=== PATIENT | female | born 1945 | race Caucasian/White ===

== ENCOUNTER → 2018-07-19 15:13 | Outpatient (CLI) | payer BC, MEDICARE, SELFPAY ==
--- NOTE | 2018-07-19 15:24 | CT_ITS ---
CT head/brain wo con HISTORY: Bilateral facial weakness with face drawn to the right ITS.REASON: LT AND RT FACIAL WEAKNESS ORDERING PHYSICIAN: Martin Cordova PATIENT AGE: 72 years COMPARISON: 07/12/2012 TECHNIQUE: Axial images obtained without contrast. Brain and bone windows reviewed. All CT scans at the facility use one or more dose reduction, viz: automated exposure control, ma/kV adjustment per patient size (including targeted exams where dose is matched to indication, i.e. head), or iterative reconstruction technique. FINDINGS: No midline shift, mass effect, intracranial hemorrhage, hydrocephalus, or extra-axial fluid collection is evident. There is generalized atrophy. There is an old lacunar infarction versus dilated perivascular space in the left basal ganglia posteriorly. There is a partially calcified subcutaneous nodule in the right parietal region. No mastoid effusion. No sinus air-fluid levels.. IMPRESSION: No acute intracranial findings.
== END ==
PROVIDERS: PCP Internal Medicine; Visit Provider Internal Medicine
DX: R29.810 Facial weakness (principal)
CPT/HCPCS: 70450

== ENCOUNTER → 2018-09-10 09:32 | Outpatient (CLI) | payer BC, MEDICARE, SELFPAY ==
--- NOTE | 2018-09-10 09:35 | MM_ITS ---
MM Dig screening mamm BI w/CAD ORDERING PHYSICIAN : Micah Santacruz MD PATIENT AGE: 72 years GENDER: Female COMPARISON: November 2016, October 2015. September, INDICATION: Routine Screening Mammogram No hormones. No new complaints. Noncontributory family history. TECHNIQUE: Standard CC and MLO images were obtained. R2 CAD reviewed. FINDINGS: Prior films are helpful as it is fourth of the moderately dense glandular tissue remaining at the anterior breast, retroareolar region is stable. No new findings here. Stable minor asymmetry again observed with no focal dominant mass nor suspicious calculation RIGHT BREAST: . No new areas of significant concern Small Relative area density at medial retroareolar region is been seen on studies from 2011 & 2012 and appear stable LEFT BREAST:No new areas of concern. Follow-up in one year recommended bilateral IMPRESSION: ...... Stable mammogram No new areas of concern. Follow-up in one year recommended bilateral BI-RADS Category: 2 Benign Finding(s) RECOMMENDED FOLLOW-UP: 1YR 1 YEAR FOLLOW-UP (A letter has been sent to the patient regarding results of the study.)
== END ==
PROVIDERS: PCP Internal Medicine; Visit Provider Nurse Practitioner Obstetrics & Gynecology
DX: Z12.31 Encounter for screening mammogram for malignant neoplasm of breast (principal)
CPT/HCPCS: 77067

== ENCOUNTER → 2018-09-17 10:53 | Outpatient (POV) | payer BC, SELFPAY | PROVIDERS: Visit Provider Otolaryngology | DX: Z00.00 Encounter for general adult medical examination without abnormal findings (principal) ==

== ENCOUNTER → 2019-01-02 09:39 | Outpatient (CLI) | payer BC, SELFPAY ==
--- NOTE | 2019-01-02 09:40 | XR_ITS ---
XR DEXA axial skeleton HISTORY: ITS.REASON: Routine Dexa Scan- Post-menopausal ORDERING PHYSICIAN: Mciah Santacruz MD PATIENT AGE: 73 years COMPARISON: None FINDINGS: The BMD measured at the Right femoral neck is 0.751 g/cm squared with a T score of -2.1. This is considered Osteopenic according to the World Health Organization criteria. Fracture risk is Moderate. Treatment is advised. There are degenerative changes of the lumbar spine IMPRESSION: Osteopenia with moderate fracture risk. Treatment is advised. Suggest follow-up exam January 2021
== END ==
PROVIDERS: PCP Internal Medicine; Visit Provider Nurse Practitioner Obstetrics & Gynecology
DX: Z78.0 Asymptomatic menopausal state (principal)
CPT/HCPCS: 77080

== ENCOUNTER → 2019-10-24 09:14 | Outpatient (CLI) | payer MEDICARE, SELFPAY ==
--- NOTE | 2019-10-24 09:23 | MM_ITS ---
PROCEDURE: MM DIG SCREENING MAMM BI W/CAD DIGITAL BREAST TOMOSYNTHESIS INCLUDED Patient Age:74Y CLINICAL INDICATION: SCREENING 74-year-old. No hormones but no new complaints noncontributory family history. 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 R2 CAD reviewed. Bilateral digital breast tomosynthesis included. FINDINGS: Residual fibroglandular elements are at the retroareolar region demonstrate similar pattern and appearance to previous studies. No new dominant or suspicious mass. No suspicious calcifications. Left breast: Stable appearance again the dense area of fibroglandular tissue towards superior retroareolar region extending towards upper-outer quadrant is stable. Tiny area of nodularity deeper breast stable.. IMPRESSION: Stable bilateral mammogram with no new areas of concern . Bilateral follow-up 1 year recommended BI-RAD Category: 2 Benign Finding(s) FOLLOW-UP: 1YR 1 Year Follow-up (A letter has been sent to the patient regarding results of the study.) Dictated by: Luis Hurst MD 10/30/2019 10:14 Electronically signed by Luis Hurst MD in [place] 10/30/2019 10:14
== END ==
PROVIDERS: PCP Internal Medicine; Visit Provider Internal Medicine
DX: Z12.31 Encounter for screening mammogram for malignant neoplasm of breast (principal)
CPT/HCPCS: 77063; 77067

== ENCOUNTER → 2020-05-17 10:35 | Outpatient (CLI) | payer MEDICARE, BC, SELFPAY ==
--- NOTE | 2020-05-17 10:43 | XR_ITS ---
PROCEDURE: XR KNEE LT 3V CLINICAL INDICATION: LT KNEE PAIN ESPECIALLY MEDIALLY COMPARISON: No exams were available for comparison FINDINGS: No fracture or dislocation. No lytic or blastic change. There is normal mineralization. There are mild osteoarthritic changes involving all 3 compartments with suspected small suprapatellar effusion. Other findings:None. IMPRESSION: Mild osteoarthritis with small knee joint effusion Dictated by: Dru De Jesus MD 05/17/2020 10:58 Dru De Jesus MD in [place] 05/17/2020 10:58
== END ==
PROVIDERS: PCP Internal Medicine; Visit Provider Internal Medicine
DX: M25.562 Pain in left knee (principal)
CPT/HCPCS: 73562

== ENCOUNTER → 2020-11-17 10:45 | Outpatient (CLI) | payer MEDICARE, BC, SELFPAY ==
--- NOTE | 2020-11-17 10:47 | MM_ITS ---
PROCEDURE: MM DIG SCREENING MAMM BI W/CAD Digital Breast Tomosynthesis Included CLINICAL INDICATION: SCREENING COMPARISON: MG [facility] DIG MAMM-SCREEN SABINO W/CAD from 11/15/2016 MG [facility] MM Dig screening mamm BI w/CAD from 09/10/2018 MG MM DIG SCREENING MAMM BI W/CAD from 10/24/2019 TECHNIQUE: Standard CC and MLO images and 3D Tomosynthesis was obtained. R2 CAD reviewed. FINDINGS: There are scattered fibroglandular elements which may obscure a lesion on mammography. No new dominant mass or indirect evidence of malignancy. No suspicious type microcalcifications. IMPRESSION: Normal bilateral digital screening mammograms. BI-RAD Category: 1 Negative FOLLOW-UP: 1 YR 1 Year Follow-up (A letter has been sent to the patient regarding results of the study.) Dictated by: Hank Marmolejo MD 11/18/2020 14:36 Hank Marmolejo MD in [place] 11/18/2020 14:36
== END ==
PROVIDERS: PCP Internal Medicine; Visit Provider Internal Medicine
DX: Z12.31 Encounter for screening mammogram for malignant neoplasm of breast (principal)
CPT/HCPCS: 77063; 77067

== ENCOUNTER → 2021-04-19 09:52 | Outpatient (CLI) | payer MEDICARE, BC, SELFPAY ==
[2021-04-19 10:38] LABS: Basophils # 0.1 K/mm3 (0-0.2); Basophils % 1.5 % (0.1-2.0); Eosinophils # 0.2 K/mm3 (0.0-0.4); Eosinophils % 3.5 % (0.1-12.0); Hematocrit 39.9 % (37.0-47.0); Hemoglobin 13.1 g/dL (12.2-16.2); Lymphocytes # 2.3 K/mm3 (0.7-4.5); Lymphocytes % 36.3 % (10-50); Mean Corpuscular HGB Conc 32.8 g/dL (31.8-35.4); Mean Corpuscular Hemoglobin 30.1 pg (27.0-31.2); Mean Corpuscular Volume 91.7 fl (81-99); Mean Platelet Volume 9.1 fl (7.4-10.4); Monocytes # 0.4 K/mm3 (0.1-1.0); Monocytes % 5.9 % (1.7-9.3); Neutrophils # 3.4 K/mm3 (1.8-7.8); Neutrophils % 52.8 % (37.0-80.0); Platelet Count 241 K/mm3 (142-424); Red Blood Count 4.35 M/mm3 (4.20-5.40); Red Cell Distribution Width 14.8 % (11.5-17.5); White Blood Count 6.4 K/mm3 (4.8-10.8)
[2021-04-19 11:20] LABS: Alanine Aminotransferase 25 U/L (12-78); Albumin Level 4.8 g/dl (3.5-5.0); Albumin/Globulin Ratio 1.9 (1.1-1.8); Alkaline Phosphatase 71 U/L (38-126); Anion Gap 12.9 mEq/L (5-15); Aspartate Amino Transferase 40 U/L (14-36); Bilirubin,Total 0.7 mg/dl (0.2-1.3); Blood Urea Nitrogen 16 mg/dl (7-17); Carbon Dioxide 29 mmol/L (22.0-30.0); Chloride 104 mmol/L (98-107); Chol/HDL Ratio 3.1 (1-3.5); Cholesterol 142 mg/dl (140-200); Estimated Glomerular Filt Rate 82 ml/min (>60); GFR (African American) 99 ML/MIN (>60); Globulin 2.5 g/dL (1.3-3.2); Glucose 91 mg/dl (74-100); HDL Cholesterol 46 mg/dl (40-60); Potassium 4.9 mmoL/L (3.5-5.1); Sodium 141 mmol/L (136-145); Total Protein,Serum 7.3 g/dl (6.3-8.2); Triglycerides 246 mg/dl (30-150); VLDL Cholesterol 49 mg/dL (0-40)
== END ==
PROVIDERS: Visit Provider Internal Medicine
DX: I10 Essential (primary) hypertension (principal); E78.5 Hyperlipidemia, unspecified; R73.01 Impaired fasting glucose; D64.9 Anemia, unspecified
CPT/HCPCS: 36415; 80053; 80061; 85025

== ENCOUNTER → 2021-10-17 14:15 | Outpatient (CLI) | payer MEDICARE, BC, SELFPAY ==
[2021-10-17 15:32] LABS: Alanine Aminotransferase 27 U/L (12-78); Albumin Level 4.8 g/dl (3.5-5.0); Alkaline Phosphatase 83 U/L (38-126); Anion Gap 14.6 mEq/L (5-15); Aspartate Amino Transferase 45 U/L (14-36); Bilirubin,Total 0.4 mg/dl (0.2-1.3); Blood Urea Nitrogen 24 mg/dl (7-17); Calcium 10.6 mg/dl (8.4-10.2); Carbon Dioxide 27 mmol/L (22.0-30.0); Chloride 101 mmol/L (98-107); Chol/HDL Ratio 4.8 (1-3.5); Cholesterol 203 mg/dl (140-200); Estimated Glomerular Filt Rate 70 ml/min (>60); GFR (African American) 85 ML/MIN (>60); Globulin 2.4 g/dL (1.3-3.2); Glucose 84 mg/dl (74-100); HDL Cholesterol 42 mg/dl (40-60); Potassium 4.6 mmoL/L (3.5-5.1); Sodium 138 mmol/L (136-145); Total Protein,Serum 7.2 g/dl (6.3-8.2); Triglycerides 335 mg/dl (30-150); VLDL Cholesterol 67 mg/dL (0-40)
[2021-10-17 15:43] LABS: Direct LDL Cholesterol 73.32 mg/dL (100-129)
== END ==
PROVIDERS: PCP Internal Medicine; Visit Provider Internal Medicine
DX: I10 Essential (primary) hypertension (principal); E78.5 Hyperlipidemia, unspecified; R73.01 Impaired fasting glucose; D64.9 Anemia, unspecified
CPT/HCPCS: 80053; 80061

== ENCOUNTER → 2021-12-26 09:49 | Outpatient (CLI) | payer MEDICARE, BC, SELFPAY ==
--- NOTE | 2021-12-26 09:54 | MM_ITS ---
PROCEDURE INFORMATION: Exam: MG Bilateral Screening 3D Mammography Exam date and time: 12/26/2021 9:55 AM Age: 76 years old Clinical indication: Screening examination . Family history of breast carcinoma. TECHNIQUE: Imaging protocol: Bilateral Screening tomosynthesis and 2D mammography including computer-aided detection (CAD) when performed. COMPARISON: 1. MG MM DIG SCREENING MAMM BI W/CAD 11/17/2020 10:53 AM 2. MG MM DIG SCREENING MAMM BI W/CAD 10/24/2019 9:36 AM 3. MG [facility] MM Dig screening mamm BI w/CAD 09/10/2018 10:12 AM FINDINGS: MAMMOGRAPHY: Breast density: There are scattered areas of fibroglandular density. Mass: No suspicious masses. Architectural distortion: No suspicious distortion. Calcifications: No suspicious calcifications. Asymmetric density: None. Skin thickening: None. Axillary adenopathy: None. IMPRESSION: No mammographic evidence of malignancy. Annual screening is recommended unless otherwise clinically indicated. ASSESSMENT: BI-RADS Category 1: Negative
== END ==
PROVIDERS: PCP Internal Medicine; Visit Provider Internal Medicine
DX: Z12.31 Encounter for screening mammogram for malignant neoplasm of breast (principal)
CPT/HCPCS: 77063; 77067

== ENCOUNTER → 2022-03-11 09:43 | Outpatient (CLI) | payer MEDICARE, BC, SELFPAY | PROVIDERS: PCP Internal Medicine; Visit Provider Ophthalmology | DX: Z01.812 Encounter for preprocedural laboratory examination (principal); Z20.822 Contact with and (suspected) exposure to COVID-19 | CPT/HCPCS: C9803; U0003; U0005 ==

== ENCOUNTER 2022-03-14 06:15 | Day surgery (SDC) | payer MEDICARE, BC, SELFPAY ==
[2022-03-09 11:21] VITALS: BMI 32.1
[2022-03-14] VITALS (7 sets, daily range): BP systolic 126–144; BP diastolic 60–74; PULSE 74–77; RESP 14–18; TEMP 36.3–36.8; O2SAT 99–100
== END 2022-03-14 09:10 | disposition home or self-care (01) ==
LOC: OR 06:18
PROVIDERS: PCP Internal Medicine; Visit Provider Ophthalmology
DX: H25.811 Combined forms of age-related cataract, right eye (principal)
CPT/HCPCS: 66984; V2632

== ENCOUNTER 2022-03-28 06:15 | Day surgery (SDC) | payer MEDICARE, BC, SELFPAY ==
[2022-03-23 11:42] VITALS: BMI 48.4
[2022-03-28] VITALS (7 sets, daily range): BP systolic 116–164; BP diastolic 58–71; PULSE 71–75; RESP 18; TEMP 36.2–36.7; O2SAT 18–100
== END 2022-03-28 09:03 | disposition home or self-care (01) ==
LOC: OR 06:17
PROVIDERS: PCP Internal Medicine; Visit Provider Ophthalmology
DX: H25.813 Combined forms of age-related cataract, bilateral (principal); Z79.899 Other long term (current) drug therapy
CPT/HCPCS: 66984; V2632

== ENCOUNTER → 2022-04-18 12:39 | Outpatient (CLI) | payer MEDICARE, BC, SELFPAY ==
[2022-04-18 17:50] LABS: Basophils # 0.1 K/mm3 (0-0.2); Basophils % 0.8 % (0.1-2.0); Eosinophils # 0.3 K/mm3 (0.0-0.4); Eosinophils % 4.2 % (0.1-12.0); Hematocrit 39.9 % (37.0-47.0); Hemoglobin 12.7 g/dL (12.2-16.2); Lymphocytes # 2.4 K/mm3 (0.7-4.5); Lymphocytes % 38.8 % (10-50); Mean Corpuscular HGB Conc 31.9 g/dL (31.8-35.4); Mean Corpuscular Hemoglobin 29.7 pg (27.0-31.2); Mean Corpuscular Volume 93.2 fl (81-99); Mean Platelet Volume 11.2 fl (7.4-10.4); Monocytes # 0.4 K/mm3 (0.1-1.0); Monocytes % 6.3 % (1.7-9.3); Neutrophils % 49.9 % (37.0-80.0); Platelet Count 241 K/mm3 (142-424); Red Blood Count 4.28 M/mm3 (4.20-5.40); Red Cell Distribution Width 14.6 % (11.5-17.5); White Blood Count 6.1 K/mm3 (4.8-10.8)
[2022-04-18 18:15] LABS: Alanine Aminotransferase 25 U/L (12-78); Albumin/Globulin Ratio 2.2 (1.1-1.8); Alkaline Phosphatase 104 U/L (38-126); Anion Gap 18.5 mEq/L (5-15); Aspartate Amino Transferase 38 U/L (14-36); Bilirubin,Total 0.7 mg/dl (0.2-1.3); Blood Urea Nitrogen 18 mg/dl (7-17); Calcium 10.9 mg/dl (8.4-10.2); Carbon Dioxide 28 mmol/L (22.0-30.0); Chloride 98 mmol/L (98-107); Chol/HDL Ratio 4.1 (1-3.5); Cholesterol 168 mg/dl (140-200); Estimated Glomerular Filt Rate 70 ml/min (>60); GFR (African American) 85 ML/MIN (>60); Globulin 2.3 g/dL (1.3-3.2); Glucose 78 mg/dl (74-100); HDL Cholesterol 41 mg/dl (40-60); Potassium 4.5 mmoL/L (3.5-5.1); Sodium 140 mmol/L (136-145); Total Protein,Serum 7.3 g/dl (6.3-8.2); Triglycerides 269 mg/dl (30-150); VLDL Cholesterol 54 mg/dL (0-40)
[2022-04-18 18:25] LABS: Direct LDL Cholesterol 69.15 mg/dL (100-129)
== END ==
PROVIDERS: PCP Internal Medicine; Visit Provider Internal Medicine
DX: I10 Essential (primary) hypertension (principal); D64.9 Anemia, unspecified; E78.5 Hyperlipidemia, unspecified; R73.01 Impaired fasting glucose
CPT/HCPCS: 80053; 80061; 85025

== ENCOUNTER → 2022-05-16 14:38 | Outpatient (CLI) | payer MEDICARE, BC, SELFPAY ==
[2022-05-16 17:26] LABS: Anion Gap 14.8 mEq/L (5-15); Blood Urea Nitrogen 27 mg/dl (7-17); Carbon Dioxide 27 mmol/L (22.0-30.0); Chloride 102 mmol/L (98-107); Estimated Glomerular Filt Rate 61 ml/min (>60); GFR (African American) 74 ML/MIN (>60); Glucose 74 mg/dl (74-100); Potassium 4.8 mmoL/L (3.5-5.1); Sodium 139 mmol/L (136-145)
== END ==
PROVIDERS: PCP Internal Medicine; Visit Provider Internal Medicine
DX: I10 Essential (primary) hypertension (principal); R73.01 Impaired fasting glucose; E83.52 Hypercalcemia
CPT/HCPCS: 80048

== ENCOUNTER → 2022-10-16 10:29 | Outpatient (CLI) | payer MEDICARE, BC, SELFPAY ==
[2022-10-16 11:14] LABS: Alanine Aminotransferase 28 U/L (12-78); Albumin Level 4.8 g/dl (3.5-5.0); Alkaline Phosphatase 87 U/L (38-126); Anion Gap 18.5 mEq/L (5-15); Aspartate Amino Transferase 43 U/L (14-36); Bilirubin,Total 0.7 mg/dl (0.2-1.3); Blood Urea Nitrogen 26 mg/dl (7-17); Calcium 9.8 mg/dl (8.4-10.2); Carbon Dioxide 26 mmol/L (22.0-30.0); Chloride 97 mmol/L (98-107); Chol/HDL Ratio 3.6 (1-3.5); Cholesterol 171 mg/dl (140-200); Estimated Glomerular Filt Rate 61 ml/min (>60); GFR (African American) 74 ML/MIN (>60); Globulin 2.4 g/dL (1.3-3.2); Glucose 94 mg/dl (74-100); HDL Cholesterol 48 mg/dl (40-60); Potassium 4.5 mmoL/L (3.5-5.1); Sodium 137 mmol/L (136-145); Total Protein,Serum 7.2 g/dl (6.3-8.2); Triglycerides 278 mg/dl (30-150); VLDL Cholesterol 56 mg/dL (0-40)
[2022-10-16 11:24] LABS: Direct LDL Cholesterol 72.97 mg/dL (100-129)
== END ==
PROVIDERS: PCP Internal Medicine; Visit Provider Internal Medicine
DX: I10 Essential (primary) hypertension (principal); R73.01 Impaired fasting glucose; D64.9 Anemia, unspecified; F41.9 Anxiety disorder, unspecified
CPT/HCPCS: 80053; 80061

== ENCOUNTER 2022-10-22 01:03 | Emergency (ER) | payer MEDICARE, BC, SELFPAY ==
[2022-10-22] VITALS (10 sets, daily range): BP systolic 139–165; BP diastolic 62–74; PULSE 79–89; RESP 16–22; TEMP 36.8–37.4; O2SAT 95–100; BMI 33.5
--- NOTE | 2022-10-22 01:05 | ECG_ITS ---
APPROVED REPORT Exam: Resting ECG HR:91 bpm ECG Measurements Heart Rate 91 AXES DE 151 P 63 QRSd 185 QRS 31 QT 410 T 180 QTc 459 Conclusion SINUS RHYTHM LEFT BUNDLE BRANCH BLOCK [120+ ms QRS DURATION, 80+ ms Q/S IN V1/V2, 85+ ms R IN I/aVL/V5/V6] ABNORMAL ECG UNCONFIRMED REPORT Electronically signed by : Gerry Morales MD 10/22/2022 07:31:39
--- NOTE | 2022-10-22 01:05 | XR_ITS ---
PROCEDURE INFORMATION: Exam: XR Chest Exam date and time: 10/22/2022 1:04 AM Age: 77 years old Clinical indication: Pain; Chest pressure; Additional info: Cp TECHNIQUE: Imaging protocol: Radiologic exam of the chest. Views: 2 views. Total images: 2 COMPARISON: No relevant prior studies available. FINDINGS: Tubes, catheters and devices: EKG leads are present. Lungs: Unremarkable. No consolidation. No pulmonary vascular congestion or edema. Pleural spaces: Unremarkable. No pleural effusion. No pneumothorax. Heart/Mediastinum: Unremarkable. No cardiomegaly. No mediastinal widening or hilar enlargement. Vasculature: Atherosclerotic aortic arch. Bones/joints: Moderate degenerative changes thoracic spine. Mild degenerative change of bilateral shoulders/AC joints. IMPRESSION: No radiographically acute cardiopulmonary process.
--- NOTE | 2022-10-22 01:31 | HMH.EDURI ---
Discharge Plan Disposition Patient Disposition: Home, Self-Care Chief Complaint: Upper Respiratory Infection Prescriptions Prescriptions: No Action lisinopril-hydrochlorothiazide 20-12.5 mg tablet 1 tab PO DAILY simvastatin 20 mg tablet 20 mg PO QHS lorazepam 0.5 mg Tablet 0.5 mg PO DAILY PRN (Reason: NERVES) Referrals Follow up/Referrals: Martin Cordova MD [Primary Care Provider] - See instructions Clinical Impressions Clinical Impression: COVID-19, Complete left bundle branch block (LBBB) Instructions Patient Instructions: DI for COVID-19 (Suspected or Confirmed ) Discharge ED Provider: Taiwo (ED)Earnest URI/Sore Throat HPI General Chief Complaint: Upper Respiratory Infection Stated Complaint: CP Time Seen by Provider: 10/22/22 01:31 Mode of Arrival: Ambulatory Source of Information: Patient, Spouse and Medical Record Limitations: No Limitations Description of Symptoms (Recalled from ER Triage Doc. by RN): pt to ED with with sinus drainage, sore throat,fever and body aches since yesterday and reported that night when she went to lay down for bed she felt a pressure in the middle of her chest. pt reports she did feel relief when she got up out of bed and ambulated. History of Present Illness HPI Narrative: fever and uri sx over the last few days but tonight with chest pain Complaint: fever and sore throat Onset (ago): day(s) Duration: intermittent Severity: moderate Able to tolerate fluids by mouth: Yes Associated symptoms: denies other symptoms Related Data Home Medications Medication Instructions Recorded Confirmed lisinopril 20 1 tab PO DAILY blood pressure 09/09/18 03/23/22 mg-hydrochlorothiazide 12.5 mg tablet simvastatin 20 mg tablet 20 mg PO QHS Cholesterol 09/09/18 03/23/22 lorazepam 0.5 mg tablet 0.5 mg PO DAILY PRN NERVES 03/09/22 03/23/22 Allergies Allergy/AdvReac Type Severity Reaction Status Date / Time bacitracin Allergy Unknown I-RASH Verified 03/09/22 11:07 [From NEOSPORIN ([id number])] clindamycin [CLINDAMYCIN] Allergy Unknown NA-DIARRHEA,ABD Verified 03/09/22 11:07 INFECTION mupirocin [From BACTROBAN] Allergy Unknown I-RASH Verified 03/09/22 11:07 neomycin Allergy Unknown I-RASH Verified 03/09/22 11:07 [From NEOSPORIN ([id number])] polymyxin B Allergy Unknown I-RASH Verified 03/09/22 11:07 [From NEOSPORIN ([id number])] [facility] Disclaimer: The information contained in this section may have been updated after the patient was seen, as this information can be updated by other users. Medical History (Updated 10/22/22 @ 05:56 by Earnest Maravilla MD (ED)) Allergies Arthritis H/O Monsivais's palsy Hemorrhoid History of cataract History of gastroesophageal reflux (GERD) Hyperlipidemia Hypertension Urinary tract infection Surgical History History of esophagogastroduodenoscopy (EGD) History of partial hysterectomy Hx of colonoscopy Family History Other No significant family history Social History Smoking Status: Never smoker alcohol intake: never substance use type: denies use current occupational status: retired Travel in the last 8 weeks: None caffeine: No ROS Obtained: Yes All systems reviewed & no additional complaints except as documented Physical Exam General General appearance: alert Head Head exam: normocephalic Eye Eye exam: Present PERRL and EOMI ENT ENT exam: Present normal oropharynx and mucous membranes moist Neck Neck exam: Present trachea midline Respiratory Respiratory exam: Present normal lung sounds bilaterally; Absent respiratory distress Cardiovascular Cardiovascular exam: Present regular rate and systolic murmur Abdominal Exam Abdominal exam: Present soft Extremities Exam Extremities
[2022-10-22 01:51] LABS: Influenza A, PCR Not Detected (NotDetected); Influenza B, PCR Not Detected (NotDetected)
[2022-10-22 01:54] LABS: Basophils % 0.5 % (0.1-2.0); Eosinophils # 0.1 K/mm3 (0.0-0.4); Eosinophils % 1.4 % (0.1-12.0); Hematocrit 36.8 % (37.0-47.0); Hemoglobin 12.1 g/dL (12.2-16.2); Lymphocytes # 1.2 K/mm3 (0.7-4.5); Mean Corpuscular HGB Conc 32.8 g/dL (31.8-35.4); Mean Corpuscular Hemoglobin 30.4 pg (27.0-31.2); Mean Corpuscular Volume 92.7 fl (81-99); Mean Platelet Volume 9.4 fl (7.4-10.4); Monocytes # 0.7 K/mm3 (0.1-1.0); Monocytes % 12.3 % (1.7-9.3); Neutrophils # 3.4 K/mm3 (1.8-7.8); Neutrophils % 63.7 % (37.0-80.0); Platelet Count 159 K/mm3 (142-424); Red Blood Count 3.97 M/mm3 (4.20-5.40); White Blood Count 5.3 K/mm3 (4.8-10.8)
[2022-10-22 01:56] LABS: Chloride 92 mmol/L (98-107); Sodium 131 mmol/L (136-145)
[2022-10-22 01:57] LABS: Potassium 3.7 mmoL/L (3.5-5.1)
[2022-10-22 01:59] LABS: Alanine Aminotransferase 35 U/L (12-78); Albumin Level 4.4 g/dl (3.5-5.0); Alkaline Phosphatase 88 U/L (38-126); Aspartate Amino Transferase 51 U/L (14-36); Bilirubin,Indirect 0.3 mg/dL (0.0-0.9); Bilirubin,Total 0.3 mg/dl (0.2-1.3); Bilirubin,Unconjugated 0.4 mg/dL (0.0-1.1); Blood Urea Nitrogen 18 mg/dl (7-17); Creatinine Clearance Estimated 71 mL/min (50-200); Estimated Glomerular Filt Rate 70 ml/min (>60); GFR (African American) 84 ML/MIN (>60)
[2022-10-22 02:00] LABS: Anion Gap 16.7 mEq/L (5-15); Calcium 8.9 mg/dl (8.4-10.2); Carbon Dioxide 26 mmol/L (22.0-30.0); Glucose 114 mg/dl (74-100)
[2022-10-22 02:04] LABS: Strep Scrn Group A (Rapid) Negative (Negative)
[2022-10-22 02:13] LABS: Coronavirus 19, PCR Detected (NotDetected)
[2022-10-22 02:14] LABS: Troponin I < 0.01 ng/ml (0.00-0.034)
== END 2022-10-22 06:08 | disposition home or self-care (01) ==
PROVIDERS: Emergency Provider Emergency Medicine; PCP Internal Medicine
DX: U07.1 COVID-19 (principal); I44.7 Left bundle-branch block, unspecified; R07.9 Chest pain, unspecified
CPT/HCPCS: 71046; 80048; 80076; 84484; 85025; 87430; 87635; 87636; 93005; 93041; 99285; C9803; U0003; U0005

== ENCOUNTER → 2023-01-16 10:10 | Outpatient (CLI) | payer MEDICARE, BC, SELFPAY ==
--- NOTE | 2023-01-16 10:14 | MM_ITS ---
PROCEDURE INFORMATION: Exam: MG Bilateral Screening 3D Mammography Exam date and time: 01/16/2023 10:01 AM Age: 77 years old Clinical indication: Screening examination . Family history of breast carcinoma. TECHNIQUE: Imaging protocol: Bilateral Screening tomosynthesis and 2D mammography including computer-aided detection (CAD) when performed. COMPARISON: 1. MG MM DIG SCREENING MAMM BI W/CAD 12/26/2021 9:55 AM 2. MG MM DIG SCREENING MAMM BI W/CAD 11/17/2020 10:53 AM 3. MG MM DIG SCREENING MAMM BI W/CAD 10/24/2019 9:36 AM FINDINGS: MAMMOGRAPHY: Breast composition: The breasts are heterogeneously dense, which may obscure small masses. Mass: No suspicious masses. Architectural distortion: No suspicious distortion. Calcifications: No suspicious calcifications. Asymmetric density: None. Skin thickening: None. Axillary adenopathy: None. IMPRESSION: 1. No mammographic evidence of malignancy. Annual screening is recommended unless otherwise clinically indicated. 2. Given the reported risk factors for this patient, a breast cancer risk assessment may prove useful for further evaluation. ASSESSMENT: BI-RADS Category 1: Negative
== END ==
PROVIDERS: PCP Internal Medicine; Visit Provider Internal Medicine
DX: Z12.31 Encounter for screening mammogram for malignant neoplasm of breast (principal)
CPT/HCPCS: 77063; 77067

== ENCOUNTER → 2023-04-16 13:57 | Outpatient (CLI) | payer MEDICARE, BC, SELFPAY ==
[2023-04-16 14:55] LABS: Basophils % 0.3 % (0.1-2.0); Eosinophils # 0.4 K/mm3 (0.0-0.4); Eosinophils % 6.4 % (0.1-12.0); Hematocrit 37.2 % (37.0-47.0); Hemoglobin 12.6 g/dL (12.2-16.2); Lymphocytes # 2.5 K/mm3 (0.7-4.5); Lymphocytes % 39.3 % (10-50); Mean Corpuscular HGB Conc 33.8 g/dL (31.8-35.4); Mean Corpuscular Volume 91.8 fl (81-99); Mean Platelet Volume 9.7 fl (7.4-10.4); Monocytes # 0.3 K/mm3 (0.1-1.0); Neutrophils # 3.2 K/mm3 (1.8-7.8); Neutrophils % 49.1 % (37.0-80.0); Platelet Count 193 K/mm3 (142-424); Red Blood Count 4.05 M/mm3 (4.20-5.40); Red Cell Distribution Width 15.2 % (11.5-17.5); White Blood Count 6.4 K/mm3 (4.8-10.8)
[2023-04-16 15:31] LABS: Alanine Aminotransferase 28 U/L (12-78); Albumin Level 4.7 g/dl (3.5-5.0); Alkaline Phosphatase 83 U/L (38-126); Anion Gap 13.6 mEq/L (5-15); Aspartate Amino Transferase 45 U/L (14-36); Bilirubin,Total 0.6 mg/dl (0.2-1.3); Blood Urea Nitrogen 25 mg/dl (7-17); Calcium 9.5 mg/dl (8.4-10.2); Carbon Dioxide 27 mmol/L (22.0-30.0); Chloride 100 mmol/L (98-107); Chol/HDL Ratio 4.1 (1-3.5); Cholesterol 154 mg/dl (140-200); Estimated Glomerular Filt Rate 61 ml/min (>60); GFR (African American) 74 ML/MIN (>60); Globulin 2.4 g/dL (1.3-3.2); Glucose 81 mg/dl (74-100); HDL Cholesterol 38 mg/dl (40-60); Potassium 4.6 mmoL/L (3.5-5.1); Sodium 136 mmol/L (136-145); Total Protein,Serum 7.1 g/dl (6.3-8.2); Triglycerides 275 mg/dl (30-150); VLDL Cholesterol 55 mg/dL (0-40)
[2023-04-16 15:42] LABS: Direct LDL Cholesterol 64.14 mg/dL (100-129)
== END ==
PROVIDERS: PCP Internal Medicine; Visit Provider Internal Medicine
DX: I10 Essential (primary) hypertension (principal); E78.5 Hyperlipidemia, unspecified; M15.0 Primary generalized (osteo)arthritis; D64.9 Anemia, unspecified
CPT/HCPCS: 80053; 80061; 85025

== ENCOUNTER 2023-10-15 13:15 | Outpatient (CLI) | payer MEDICARE, BC, SELFPAY ==
[2023-10-15 14:44] LABS: Alanine Aminotransferase 26 U/L (12-78); Albumin Level 4.5 g/dl (3.5-5.0); Albumin/Globulin Ratio 1.9 (1.1-1.8); Alkaline Phosphatase 81 U/L (38-126); Anion Gap 15.4 mEq/L (5-15); Aspartate Amino Transferase 37 U/L (14-36); Bilirubin,Total 0.9 mg/dl (0.2-1.3); Blood Urea Nitrogen 20 mg/dl (7-17); Calcium 9.6 mg/dl (8.4-10.2); Carbon Dioxide 26 mmol/L (22.0-30.0); Chloride 102 mmol/L (98-107); Chol/HDL Ratio 3.1 (1-3.5); Cholesterol 158 mg/dl (140-200); Estimated Glomerular Filt Rate 70 ml/min (>60); GFR (African American) 84 ML/MIN (>60); Globulin 2.4 g/dL (1.3-3.2); Glucose 90 mg/dl (74-100); HDL Cholesterol 51 mg/dl (40-60); Potassium 4.4 mmoL/L (3.5-5.1); Sodium 139 mmol/L (136-145); Total Protein,Serum 6.9 g/dl (6.3-8.2); Triglycerides 282 mg/dl (30-150); VLDL Cholesterol 56 mg/dL (0-40)
[2023-10-15 14:55] LABS: Direct LDL Cholesterol 62.89 mg/dL (100-129)
== END 2023-10-15 23:59 | disposition home or self-care (01) ==
LOC: LAB.DROPOF 13:17
PROVIDERS: PCP Internal Medicine; Visit Provider Internal Medicine
DX: I10 Essential (primary) hypertension (principal); E78.5 Hyperlipidemia, unspecified; M15.0 Primary generalized (osteo)arthritis; D64.9 Anemia, unspecified
CPT/HCPCS: 80053; 80061

== ENCOUNTER 2024-03-07 10:01 | Outpatient (CLI) | payer MEDICARE, BC, SELFPAY ==
--- NOTE | 2024-03-07 10:01 | MM_ITS ---
PROCEDURE INFORMATION: Exam: MG Bilateral Screening 3D Mammography Exam date and time: 03/07/2024 9:54 AM Age: 78 years old Clinical indication: Screening examination. Her sister had breast cancer. TECHNIQUE: Imaging protocol: Bilateral Screening tomosynthesis and 2D mammography including computer-aided detection (CAD) when performed. COMPARISON: 1. MG MM DIG SCREENING MAMM BI W/CAD 01/16/2023 10:01 AM 2. MG MM DIG SCREENING MAMM BI W/CAD 12/26/2021 9:55 AM 3. MG MM DIG SCREENING MAMM BI W/CAD 11/17/2020 10:53 AM 4. MG MM DIG SCREENING MAMM BI W/CAD 10/24/2019 9:36 AM FINDINGS: MAMMOGRAPHY: Breast composition: There are scattered areas of fibroglandular density. Mass: No suspicious mass. Architectural distortion: None. Calcifications: No suspicious calcifications. Asymmetric density: None. Skin thickening: None. Axillary adenopathy: None. IMPRESSION: No mammographic evidence of malignancy. Annual screening is recommended unless otherwise clinically indicated. ASSESSMENT: BI-RADS Category 1: Negative.
== END 2024-03-07 23:59 | disposition home or self-care (01) ==
LOC: RAD 10:01
PROVIDERS: PCP Internal Medicine; Visit Provider Internal Medicine
DX: Z12.31 Encounter for screening mammogram for malignant neoplasm of breast (principal)
CPT/HCPCS: 77063; 77067

== ENCOUNTER 2024-04-16 10:21 | Outpatient (CLI) | payer MEDICARE, BC, SELFPAY ==
--- NOTE | 2024-04-16 10:35 | XR_ITS ---
FINAL REPORT CLINICAL HISTORY: .chest pain, soa FINDINGS: Two views of the chest were obtained. The heart size and pulmonary vascularity are within normal limits. The mediastinum is normal. No acute pulmonary abnormality is identified. There is no pneumothorax. The bony thorax is intact. IMPRESSION: No active cardiopulmonary disease. Reviewed, Interpreted and Dictated by Arthur Womack III, MD Transcribed by Tea Corado Authenticated and [facility]
[2024-04-16 11:40] LABS: Basophils # 0.1 K/mm3 (0-0.2); Basophils % 1.2 % (0.1-2.0); Eosinophils # 0.3 K/mm3 (0.0-0.4); Eosinophils % 4.3 % (0.1-12.0); Hematocrit 37.2 % (37.0-47.0); Hemoglobin 12.6 g/dL (12.2-16.2); Lymphocytes # 2.2 K/mm3 (0.7-4.5); Lymphocytes % 32.1 % (10-50); Mean Corpuscular HGB Conc 33.7 g/dL (31.8-35.4); Mean Corpuscular Hemoglobin 30.9 pg (27.0-31.2); Mean Corpuscular Volume 91.4 fl (81-99); Mean Platelet Volume 9.2 fl (7.4-10.4); Monocytes # 0.6 K/mm3 (0.1-1.0); Neutrophils # 3.8 K/mm3 (1.8-7.8); Neutrophils % 54.4 % (37.0-80.0); Platelet Count 212 K/mm3 (142-424); Red Blood Count 4.07 M/mm3 (4.20-5.40); Red Cell Distribution Width 15.5 % (11.5-17.5); White Blood Count 6.9 K/mm3 (4.8-10.8)
[2024-04-16 11:45] LABS: Alanine Aminotransferase 25 U/L (12-78); Albumin Level 4.9 g/dl (3.5-5.0); Albumin/Globulin Ratio 1.9 (1.1-1.8); Alkaline Phosphatase 94 U/L (38-126); Anion Gap 15.4 mEq/L (5-15); Aspartate Amino Transferase 40 U/L (14-36); Bilirubin,Total 0.7 mg/dl (0.2-1.3); Blood Urea Nitrogen 27 mg/dl (7-17); Calcium 9.6 mg/dl (8.4-10.2); Carbon Dioxide 23 mmol/L (22.0-30.0); Chloride 105 mmol/L (98-107); Estimated Glomerular Filt Rate 54 ml/min (>60); GFR (African American) 65 ML/MIN (>60); Globulin 2.6 g/dL (1.3-3.2); Glucose 93 mg/dl (74-100); Potassium 4.4 mmoL/L (3.5-5.1); Sodium 139 mmol/L (136-145); Total Protein,Serum 7.5 g/dl (6.3-8.2)
[2024-04-16 16:31] LABS: Cholesterol 201 mg/dl (140-200); HDL Cholesterol 40 mg/dl (40-60); Triglycerides 397 mg/dl (30-150); VLDL Cholesterol 79 mg/dL (0-40)
== END 2024-04-16 23:59 | disposition home or self-care (01) ==
LOC: LAB 10:23
PROVIDERS: PCP Internal Medicine; Visit Provider Internal Medicine
DX: R07.9 Chest pain, unspecified (principal); I10 Essential (primary) hypertension; E78.5 Hyperlipidemia, unspecified
CPT/HCPCS: 36415; 71046; 80053; 80061; 85025

== ENCOUNTER 2024-05-05 10:42 | Outpatient (CLI) | payer MEDICARE, BC, SELFPAY ==
--- NOTE | 2024-05-05 10:47 | CA_ITS ---
APPROVED REPORT EXAM: Comprehensive 2D, Doppler, and color-flow Echocardiogram Design And Sales Consultant: Bailee Pino, RT(R) Ht: 5 ft 6 in Wt: 211lbs BSA: 2.05 BP: 177/87 mmHg Indications: CP, GAN, HTN, hyperlipidemia, abn EKG. 2D Dimensions Left Atrium 2.58 cm F: 2.7 - 3.8 LA Volume 39.80 mL LVOT 2.01 cm (M/F) 1.5-2.5 LA Volume Index 19.41 mL/m2 (M/F) 16-34 EF AP4 58.20 % GL Strain -21.0 % M-Mode Dimensions RVDd 1.97 cm (0.9-2.6) LVDd 4.01 cm (3.5-5.7) Ao Diam 3.23 cm (2.0-3.7) LVDs 3.01 cm (3.5-5.7) IVSd 1.25 cm (0.6-1.1) PWd 0.86 cm (0.6-1.1) EF (Teich) 49.90% FS 24.90% EDV (Teich) 70.40 mL ESV (Teich) 35.30 mL LV Diastology E Decel Time 221 (160-240 msec) E/A Ratio 1.0 MED E' 5.2 (>= 7 cm/sec) E'/MED E' Ratio 26.31 (<= 14) LAT E' 6.5 (>= 10 cm/sec) E/LAT E' Ratio 21.05 (<= 14) Aortic Valve LVOT Max 126.0 (70-110 cm/s) DORIAN Index 1.44 cm2/m2 LVOT VTI 33.48 cm AoV Peak Alejandro. 155.0 (50-130 cm/s) AO Mean GR. 4.70 (<5 mmHg) AO VTI 35.9 (18-25 cm) DORIAN (VTI) 2.96 (2.5-4.5 cm2) Mitral Valve MV E Max Alejandro. 137.0 (40-130 cm/s) MV A Velocity 143.0 (40-130 cm/s) E/A Ratio 0.96 MV Decel. Time 221 (160-240 ms) MV PHT 86.0 ms Tricuspid Valve TR P. Velocity 274.00 cm/s RAP Estimate 10.00 mmHg RVSP 40.00 mmHg Left Ventricle The left ventricle is normal size. The left ventricular systolic function is normal. The left ventricular ejection fraction is within the normal range. There is increased LV wall thickness. There is normal LV segmental wall motion. Grade 2 diastolic dysfunction is present. LVEF is 60%. Right Ventricle Right ventricle is mildly dilated. The right ventricular systolic function is normal. Atria Left atrium is mildly dilated. Right atrium is mildly dilated. There is no Doppler evidence of interatrial shunt. Aortic Valve The aortic valve is mildly thickened. There is no aortic valvular stenosis. Trace aortic regurgitation. Mitral Valve Moderate mitral annular calcification. The mitral valve leaflets are mildly thickened. No evidence of mitral valve stenosis. Mean MV gradient 4 mmHg (HR 74 bpm). Mild mitral regurgitation. Tricuspid Valve Tricuspid valve is grossly normal in structure and function. Mild tricuspid regurgitation. RVSP is 30-35 mmHg. Pulmonic Valve The pulmonary valve is normal in structure. Mild pulmonic regurgitation. Great Vessels The aortic root is normal in size. The ascending aorta is normal in size. IVC is normal in size and collapses >50% with inspiration. Pericardium There is no pericardial effusion. Other Information Study Quality: Fair Conclusion Normal biventricular systolic function. Mild RV dilation. Grade 2 diastolic dysfunction. Biatrial dilation. Moderate MAC. No MS. Mild MR, mild TR, mild IL. RVSP 30-35 mmHg. Electronically signed by : Jaimie Husain MD 05/13/2024 23:14:06
--- NOTE | 2024-05-05 11:21 | CT_ITS ---
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 A noncontrast coronary calcium scan was performed. A CT attenuation threshold of 130 Hounsfield units (HU) was used for the detection of calcium in contiguous voxels of 1 sq mm in area to be counted as individual lesions. Bolus tracking in the ascending aorta with a threshold of 180 HU was performed. Immediately afterwards, ECG synchronized cardiac CT was then performed from the cardiac base to apex using retrospective gating with ECG tube current modulation. A total of 85 mL of Isovue 370 mg/mL contrast medium was administered at 5 mL/sec followed by a saline flush using a biphasic injection protocol. A tube voltage of 120 KVp was used. The patient received the following medications prior to the cardiac CT. 50 mg of oral metoprolol 15 mg of oral ivabradine 0.8 mg of sublingual nitroglycerin The average heart rate at the time of acquisition was 53 bpm and regular. Image Reconstruction Transaxial images were reconstructed at 0.67 mm slide thickness. Data was reviewed interactively on an advanced workstation capable of 2 and 3-dimensional displays in all conventional reconstruction formats, including multiplanar reformations, maximum intensity projections, curved multiplanar reformations, and volume rendered reconstructions. When applicable, selected routine images describing the relevant coronary anatomy and pathology were saved and sent to PACS. Complications None Technical Quality Overall image quality was fair. Coronary artery opacification was adequate. Total DLP (Dose-Length Product) is 2109.2 mGy-cm. The reported value represents the total of one or more individual components during the CT acquisition of this date and at this time, and as such, the same value may appear in more than one CT report depending on the interpreting/reporting physicians. COMPARISON None FINDINGS CT Coronary Calcium Scoring LMA (Left Main Artery) = 52 LAD (Left Anterior Descending) = 162 LCX (Left Coronary Circumflex) = 0 RCA (Right Coronary Artery) = 0 Total Calcium Score = 214 using the AJ-130 method. The observed calcium score of 214 is at 69th percentile for subjects of the same age, sex, and race/ethnicity. The interpretation of the calcium heart score is based on the following continuum*: 0 = no calcified plaque detected (risk of coronary artery disease is very low ??? less than 5%) 1-10 = calcium detected in extremely minimal levels (risk of coronary diseases is still low ??? less than 10%) 11-100 = mild levels of plaque detected with certainty (mild or minimal narrowing of heart arteries is likely) 101-400 = definite,at least moderate levels of plaque detected (relatively high risk of a heart attack within 3-5 years) >401-999 = extensive levels of plaque detected (high risk of heart attack, high levels of vascular disease are present, high likelihood of at least one significant coronary narrowing) *The calcium heart score quantifies the burden of coronary calcification/plaque in the coronary arteries. The calcium heart score is not able to evaluate the presence or burden of non-calcified (i.e. soft) plaque. There is also calcification in the ascending and descending thoracic aorta and the mitral annulus. Coronary CT Angiography The coronary arterial system is right dominant. Quantitative Stenosis Grading: Left Main (LM): The left main originates normally from the left sinus of Valsalva. The LM trifurcates into the left anterior descending artery, ramus intermedius, and left circumflex artery. There is calcified plaque in the LM, with no evidence of luminal stenosis. Left Anterior Descending (LAD) and Diagonal Branches: The LAD gives off 2 diagonal branch(es). There is mixed calcified/noncalcified plaque in the proximal LAD segment, with up to 50 to 70% luminal stenosis. There is no evidence of LAD-myocardial bridge. Ramus-intermedius (RI): The RI is patent. Left Circumflex (LCX) and Obtuse Marginals (OM): The LCX gives off 2 Obtuse Marginal (OM) branch(es). The LCX and its branches are patent with no evidence of atherosclerosis. Right Coronary Artery (RCA): The RCA originates normally from the right sinus of Valsalva. The RCA gives off a posterior descending artery (PDA) and posterolateral (PL) branches. There is mixed calcified/noncalcified plaque in the ostial RCA segment, with up to 50 to 70% luminal stenosis. Non-Coronary Cardiac Findings: Analysis of the left ventricular (LV) structure and function was performed after 3-D reconstruction of the LV from axial images, with user-corrected automatic contouring for assessment of LV volumes and user-defined reconstruction from oblique planes for measurement of 3-D cardiac structure and function. -The left ventricle systolic function is normal. -There is no left atrial appendage filling defect. Two right pulmonary veins and two left pulmonary veins drain normally into the left atrium. -No pericardial thickening or calcification. -Central and branch pulmonary arteries in the [id number] are unremarkable. -Thoracic aorta within the visualized thoracic aortic-branches in the [id number] is unremarkable. -Moderate mitral annular calcification is present. Extracardiac Structures No significant extra-cardiac findings. Note, however, that this study is focused on the cardiac findings. IMPRESSION -Fair image quality due to significant motion and blurring artifact. This may affect the diagnostic interpretation of the study findings. -Presence of coronary calcification with an Agatston score = 214 using the AJ-130 method. -The observed calcium score of 214 is at 69th percentile for subjects of the same age, sex, and race/ethnicity. -Multivessel atherosclerotic coronary disease, with possible evidence of significant flow-limiting atherosclerosis of the proximal LAD and the ostial RCA segments. -CAD-RADS 3. Management recommendations per ACC/AHA guidelines*, as clinically appropriate. -Calcification in the ascending and descending thoracic aorta and the mitral annulus. Moderate mitral annular calcification is present. *Recommendations: CAD RADS 0: Reassurance. Consider non-atherosclerotic causes of chest pain. CAD RADS 1: Consider non-atherosclerotic causes of chest pain. Consider preventive therapy and risk factor modification. CAD RADS 2: Consider non-atherosclerotic causes of chest pain. Consider preventive therapy and risk factor modification, particularly for patients with nonobstructive plaque in multiple segments. CAD RADS 3: Consider further functional testing. Consider symptom-guided anti-ischemic and preventive pharmacotherapy as well as risk factor modification per published guideline statements. CAD RADS 4A: Consider further functional testing or invasive coronary angiography with revascularization per published guideline statements. Consider symptom-guided anti-ischemic and preventive pharmacotherapy as well as risk factor modification per published guideline statements. CAD RADS 4B: Invasive coronary angiography recommended with revascularization per published guideline statements. Consider symptom-guided anti-ischemic and preventive pharmacotherapy as well as risk factor modification per published guideline statements. CAD RADS 5: Consider invasive angiography and/or viability assessment with revascularization per published guideline statements. Consider symptom-guided anti-ischemic and preventive pharmacotherapy as well as risk factor modification per published guideline statements. CRITICAL RESULT None COMMUNICATION Per this written report The coronary and cardiac findings of this CCTA were reviewed, reported, and signed by Maurizio Husain MD (Back Tacker) Conclusion Electronically signed by : Jaimie Husain MD 05/12/2024 13:17:01
[2024-05-05 11:55] VITALS: BP 154/71; PULSE 71; RESP 18; O2SAT 100
[2024-05-05] MEDS: METOPROLOL TARTRATE 50MG TABLET 50 MG (12:08)
[2024-05-05] MEDS: IVABRADINE HCL 7.5MG TABLET 15 MG PO (12:08)
[2024-05-05 13:25] VITALS: BP 149/68; PULSE 56; RESP 18; O2SAT 99
[2024-05-05 13:30] VITALS: BP 118/70; PULSE 56; RESP 18; O2SAT 99
[2024-05-05 13:35] VITALS: BP 117/69; PULSE 54; RESP 18; O2SAT 97
[2024-05-05] MEDS: IOPAMIDOL-370 (76%);100ML BOTTLE 75 ML IV (13:41)
[2024-05-05] MEDS: SODIUM CHLORIDE 0.9% 10ML SYR (RAD ONLY) 10 ML IV (13:41)
[2024-05-05] MEDS: 0.9 % SODIUM CHLORIDE 50 ML VIAL IV (13:41)
== END 2024-05-05 13:50 | disposition home or self-care (01) ==
LOC: RT 10:43 → RAD 12:04
PROVIDERS: PCP Internal Medicine; Visit Provider Physician Assistant
DX: R94.31 Abnormal electrocardiogram [ECG] [EKG] (principal); R06.09 Other forms of dyspnea; R07.9 Chest pain, unspecified
CPT/HCPCS: 75574; 93306; Q9967

== ENCOUNTER 2024-05-21 08:09 | Day surgery (SDC) | payer MEDICARE, BC, SELFPAY ==
[2024-05-21] VITALS (11 sets, daily range): BP systolic 128–160; BP diastolic 58–83; PULSE 68–80; RESP 17–20; TEMP 36.6; O2SAT 95–99; BMI 34.5
--- NOTE | 2024-05-21 07:02 | IR_ITS ---
APPROVED REPORT Patient Location: Outpatient PROCEDURES Left heart catheterization Left ventriculogram Selective coronary angiogram INDICATION Abnormal CCTA, Angina pectoris Informed consent was obtained prior to the procedure. COMPLICATIONS NONE Estimated Blood Loss: LESS THAN 10 ML TECHNIQUE One percent lidocaine used to anesthetize the right anterior aspect of the wrist. The right radial artery was accessed via the Seldinger technique. A 6 Swiss sheath was placed in the right radial artery. 2.5 mg of Verapamil, 800 mcg of nitroglycerin, 1mg Lidocaine and 5000 U Heparin were given through the arterial sheath. The 6 Swiss JL 3 guide catheter was also used to perform left heart catheterization, left ventriculogram and selective coronary angiogram. At the end of the procedure the sheath was removed good hemostasis was achieved using Traclet band, patient was transferred to the postop holding area in stable condition. ANGIOGRAPHIC RESULTS The left main artery Normal The left anterior descending artery Has proximal 10% stenosis with a mid vessel concentric 20 to 30% stenosis The circumflex artery Mild diffuse 10% luminal regularities The right coronary artery Dominant with mild 10% diffuse luminal regularities The DODD ventriculogram reveals Normal 60% The left ventricular end-diastolic pressure 20 to 25 mmHg IMPRESSION Mild nonflow limiting coronary artery disease Normal ejection fraction Evaded LVEDP consistent with diastolic dysfunction PLAN 1. Medical management Electronically signed by : Kevin Corea MD 05/21/2024 12:40:48
[2024-05-21 08:56] LABS: Hematocrit 39.1 % (37.0-47.0); Hemoglobin 12.5 g/dL (12.2-16.2); Red Blood Count 4.28 M/mm3 (4.20-5.40); White Blood Count 6.5 K/mm3 (4.8-10.8)
[2024-05-21 08:57] LABS: Basophils % 0.6 % (0.1-2.0); Eosinophils # 0.3 K/mm3 (0.0-0.4); Eosinophils % 4.4 % (0.1-12.0); Lymphocytes # 2.4 K/mm3 (0.7-4.5); Lymphocytes % 37.4 % (10-50); Mean Corpuscular Hemoglobin 29.2 pg (27.0-31.2); Mean Corpuscular Volume 91.4 fl (81-99); Mean Platelet Volume 11.2 fl (7.4-10.4); Monocytes # 0.5 K/mm3 (0.1-1.0); Monocytes % 7.2 % (1.7-9.3); Neutrophils # 3.3 K/mm3 (1.8-7.8); Neutrophils % 50.1 % (37.0-80.0); Platelet Count 241 K/mm3 (142-424); Red Cell Distribution Width 14.6 % (11.5-17.5)
[2024-05-21 09:06] LABS: Chloride 105 mmol/L (98-107)
[2024-05-21 09:07] LABS: Potassium 4.4 mmoL/L (3.5-5.1); Sodium 137 mmol/L (136-145)
[2024-05-21 09:09] LABS: Blood Urea Nitrogen 28 mg/dl (7-17); Creatinine Clearance Estimated 72 mL/min (50-200); Estimated Glomerular Filt Rate 54 ml/min (>60); GFR (African American) 65 ML/MIN (>60)
[2024-05-21 09:10] LABS: Anion Gap 10.4 mEq/L (5-15); Calcium 9.8 mg/dl (8.4-10.2); Carbon Dioxide 26 mmol/L (22.0-30.0); Glucose 98 mg/dl (74-100)
[2024-05-21] MEDS: LIDOCAINE 1% 10ML MDV 20 ML IJ (09:51)
[2024-05-21] MEDS: FENTANYL 100MCG/2ML VIAL 50 MCG IV (09:51)
[2024-05-21] MEDS: HEPARIN 1,000 UNITS/ML 10ML VIAL (CATH LAB) 10000 UNIT IV (09:51)
[2024-05-21] MEDS: VERAPAMIL 2.5MG/ML 2ML VIAL 2.5 MG IV (09:51)
[2024-05-21] MEDS: MIDAZOLAM HCL 1MG/ML 5ML VIAL 1 MG IV (09:51)
[2024-05-21] MEDS: HEPARIN 1,000 UNITS/500ML NS (CATH LAB) 3000 UNIT IV (09:52)
[2024-05-21] MEDS: 0.9 % SODIUM CHLORIDE 500 ML 25 ML IV (09:52)
[2024-05-21] MEDS: diphenhydrAMINE 50MG/ML VIAL 50 MG IV (09:52)
[2024-05-21] MEDS: NITROGLYCERIN 800MCG/8ML SYR (CATH LAB) 800 MCG IA (09:52)
[2024-05-21] MEDS: IOPAMIDOL-370 (76%);100ML BOTTLE 50 ML IV (13:59)
== END 2024-05-21 13:26 | disposition home or self-care (01) ==
PROVIDERS: PCP Internal Medicine; Visit Provider Internal Medicine
DX: I25.118 Atherosclerotic heart disease of native coronary artery with other forms of angina pectoris (principal); I10 Essential (primary) hypertension; R93.1 Abnormal findings on diagnostic imaging of heart and coronary circulation; R06.09 Other forms of dyspnea; R07.89 Other chest pain; Z79.899 Other long term (current) drug therapy
CPT/HCPCS: 80048; 85025; 93458; 99152; C1725; C1769; J1200; J1644; J2250; J3010; Q9967

== ENCOUNTER 2024-08-15 08:08 | Day surgery (SDC) | payer MEDICARE, BC, SELFPAY ==
[2024-08-14 14:33] VITALS: BMI 32.3
[2024-08-15 08:33] VITALS: BP 163/72; PULSE 75; RESP 16; TEMP 36.2; O2SAT 99
[2024-08-15] MEDS: LACTATED RINGERS 1000ML 1,000 ML 50 ML IV (08:36)
--- NOTE | 2024-08-15 08:49 | EXP.ANES.CKL ---
[facility] Disclaimer: The information contained in this section may have been updated after the patient was seen, as this information can be updated by other users. Medical History Coronary artery disease Abnormal findings on diagnostic imaging of heart and coronary circulation H/O Monsivais's palsy Arthritis Urinary tract infection History of gastroesophageal reflux (GERD) Hemorrhoid Allergies History of cataract Hypertension Hyperlipidemia Surgical History Hx of colonoscopy History of esophagogastroduodenoscopy (EGD) History of partial hysterectomy Family History Other No significant family history Social History Smoking Status: Never smoker alcohol intake: never substance use type: denies use current occupational status: retired Travel in the last 8 weeks: None caffeine: No Have you lived/traveled outside [place] in past 30 days?: No Contact w/someone who lives/traveled outside [place] past 30 days?: No Exposure to someone with infectious disease in past 14 days?: No Do you have a fever (greater than 100.4 F or 38 C)?: No Have you tested positive for COVID-19: No Exposed to someone with COVID-19 in past 14 days?: No Do you have a sore throat?: No Do you have a cough?: No Do you have any weakness?: No Are you experiencing any nausea/vomitting?: No Do you have any diarrhea?: No Are you experiencing any unusual bleeding?: No Do you have any muscle aches/pain?: No Do you have any abdominal pain?: No Are you experiencing loss of taste or smell?: No [facility] Anesthesia Checklist Patient Identification Patient Identification: Arm Band Structural Data Admitted From: Home Planned Operative Procedure/s: Colonoscopy Consent for Planned Operative Procedure(s) Verified: Yes Verified Documents: Surgical Consent and History and Physical NPO Status Verified Time NPO: 00:00 Additional verifications Anesthesia Reactions: No Hx Blood Transfusions: Yes Blood Transfusion Reaction: No Airway Assessment Mallampati Score:: Class II C-Spine Mobility Assessed: Yes TMJ Mobility Assessed: Yes Dentition: Good Dentition Neurological Assessment Level of Consciousness: Awake, Alert and Appropriate Anesthesia Plan Anesthesia Risk discussed: Yes Anesthesia Plan: Verified ASA Class: III Anesthesia Type: MAC
--- NOTE | 2024-08-15 09:13 | HMH.SCOPE ---
Procedure: Date: 08/15/24 Patient Date of :: 1945 Procedure Performed:: Total colonoscopy to terminal ileum with polypectomy using biopsy forceps Indications:: Patient is a 78-year-old female who presents for follow-up colonoscopy. She has a history of rectal bleeding in the past. I have done colonoscopies 2011, 2015, and on 12/31/2018 at which time she was noted to have a tubular adenoma at the rectosigmoid region. Repeat colonoscopy was recommended for 5 years. Performing Provider:: Arthur Alexis MD Referring Provider:: Martin Cordova MD Sedation:: MAC sedation Procedure:: Patient history was obtained and appropriate physical examination was performed. Patient's medications and allergies were reviewed. Informed consent was obtained after explaining the benefits, alternatives, and risks of the procedure including, but not limited to, bleeding, perforation, missed lesions, and adverse reaction to anesthesia medications. Patient was transported to endoscopy procedure room. Patient was connected to monitoring devices. Throughout the procedure the patient's blood pressure, pulse, and oxygen saturations were monitored continuously. Patient identification and planned procedure were verified by the staff. Patient was positioned in lateral decubitus position. Digital anorectal exam was performed. Variable stiffness Olympus colonoscope was inserted and advanced under direct visualization to the cecum. Adequacy of the colonic preparation was noted. The colonoscope was advanced a short distance into the terminal ileum. The colonoscope was then slowly withdrawn while carefully examining the color, texture, anatomy, and integrity of the mucosoa circumferentially. Within the rectum retroflexion was performed. Colonoscope was then withdrawn. Impression: She had significant tortuosity and redundancy with floppiness of the colon diffusely which made advancement of the colonoscope rather difficult requiring abdominal pressure. There was lack of colonic tone. However ultimately the ileocecal valve and benzo orifice were clearly identified. Colonoscope was slowly withdrawn with careful surveillance. In the sigmoid colon at approximately 50 cm there was small diminutive adenomatous appearing polyp removed with biopsy forceps. The rectosigmoid region there was a small tiny diminutive adenomatous appearing polyp removed with biopsy forceps. Retroflexion revealed prominent nonbleeding hemorrhoid cushions and internal anal papilla. Findings:: Tiny diminutive polyps as noted above Internal hemorrhoids Recommendations:: Repeat colonoscopy pending pathology Complications:: None immediately apparent Estimated blood obtained (mL): 1 Colonoscopy Component Colonoscopy Component Was a colonoscopy performed during today's procedure?: Yes Recommended follow up colonoscopy of at least 10 years?: No If no, follow up colonoscopy recommended in ___ years?: See above Reason for not recommending >/= 10 yr follow-up interval?: See above
[2024-08-15 09:29] VITALS: O2SAT 99
[2024-08-15 10:25] VITALS: BP 83/46; PULSE 63; RESP 18; TEMP 36.2; O2SAT 99
[2024-08-15 10:35] VITALS: BP 96/63; PULSE 63; RESP 16; O2SAT 99
[2024-08-15 10:45] VITALS: BP 103/54; PULSE 66; RESP 18; O2SAT 99
[2024-08-15 10:55] VITALS: BP 107/67; PULSE 66; RESP 16; O2SAT 99
== END 2024-08-15 11:00 | disposition home or self-care (01) ==
PROVIDERS: PCP Internal Medicine; Visit Provider Surgery
PROC: 0DJD8ZZ Inspection of Lower Intestinal Tract, Via Natural or Artificial Opening Endoscopic (ICD-10-PCS; CPT 45380; principal; 2024-08-15 09:30)
DX: D12.7 Benign neoplasm of rectosigmoid junction (principal); D12.5 Benign neoplasm of sigmoid colon; K64.8 Other hemorrhoids; Z86.0100 Personal history of colon polyps, unspecified; K62.5 Hemorrhage of anus and rectum
CPT/HCPCS: 45380; 88305; J2704; J7120

== ENCOUNTER 2024-11-11 11:10 | Outpatient (CLI) | payer MEDICARE, BC, SELFPAY ==
[2024-11-11 14:37] LABS: Alanine Aminotransferase 18 U/L (12-78); Albumin Level 4.9 g/dl (3.5-5.0); Albumin/Globulin Ratio 2.2 (1.1-1.8); Alkaline Phosphatase 96 U/L (38-126); Anion Gap 9.8 mEq/L (5-15); Aspartate Amino Transferase 33 U/L (14-36); Bilirubin,Total 0.9 mg/dl (0.2-1.3); Blood Urea Nitrogen 32 mg/dl (7-17); Calcium 9.9 mg/dl (8.4-10.2); Carbon Dioxide 26 mmol/L (22.0-30.0); Chloride 102 mmol/L (98-107); Chol/HDL Ratio 3.1 (1-3.5); Cholesterol 150 mg/dl (140-200); Estimated Glomerular Filt Rate 43 ml/min (>60); GFR (African American) 53 ML/MIN (>60); Globulin 2.2 g/dL (1.3-3.2); Glucose 80 mg/dl (74-100); HDL Cholesterol 49 mg/dl (40-60); Potassium 4.8 mmoL/L (3.5-5.1); Sodium 133 mmol/L (136-145); Total Protein,Serum 7.1 g/dl (6.3-8.2); Triglycerides 162 mg/dl (30-150); VLDL Cholesterol 32 mg/dL (0-40)
[2024-11-11 14:48] LABS: Direct LDL Cholesterol 53.91 mg/dL (100-129)
== END 2024-11-11 23:59 | disposition home or self-care (01) ==
LOC: LAB.DROPOF 11-12 11:29
PROVIDERS: PCP Internal Medicine; Visit Provider Internal Medicine
DX: E78.5 Hyperlipidemia, unspecified (principal); I10 Essential (primary) hypertension
CPT/HCPCS: 80053; 80061

== ENCOUNTER 2024-12-23 11:15 | Outpatient (CLI) | payer MEDICARE, BC, SELFPAY ==
[2024-12-23 14:00] LABS: Anion Gap 14.8 mEq/L (5-15); Blood Urea Nitrogen 28 mg/dl (7-17); Calcium 9.9 mg/dl (8.4-10.2); Carbon Dioxide 24 mmol/L (22.0-30.0); Chloride 98 mmol/L (98-107); Creatinine,Serum 1.20 mg/dl (0.52-1.04); Estimated Glomerular Filt Rate 43 ml/min (>60); GFR (African American) 53 ML/MIN (>60); Glucose 88 mg/dl (74-100); Potassium 4.8 mmoL/L (3.5-5.1); Sodium 132 mmol/L (136-145)
== END 2024-12-23 23:59 | disposition home or self-care (01) ==
LOC: LAB.DROPOF 12-24 11:51
PROVIDERS: PCP Internal Medicine; Visit Provider Internal Medicine
DX: E87.1 Hypo-osmolality and hyponatremia (principal); R79.89 Other specified abnormal findings of blood chemistry
CPT/HCPCS: 80048

== ENCOUNTER 2025-02-10 10:40 | Outpatient (CLI) | payer MEDICARE, BC, SELFPAY ==
[2025-02-10 15:01] LABS: Chloride 103 mmol/L (98-107); Potassium 4.6 mmoL/L (3.5-5.1); Sodium 138 mmol/L (136-145)
[2025-02-10 15:03] LABS: Blood Urea Nitrogen 21 mg/dl (7-17); Creatinine,Serum 0.90 mg/dl (0.52-1.04); Estimated Glomerular Filt Rate 61 ml/min (>60); GFR (African American) 73 ML/MIN (>60)
[2025-02-10 15:04] LABS: Anion Gap 15.6 mEq/L (5-15); Calcium 9.9 mg/dl (8.4-10.2); Carbon Dioxide 24 mmol/L (22.0-30.0); Glucose 109 mg/dl (74-100)
== END 2025-02-10 23:59 ==
LOC: LAB.DROPOF 02-11 09:43
PROVIDERS: PCP Internal Medicine; Visit Provider Internal Medicine
DX: E87.1 Hypo-osmolality and hyponatremia (principal); R79.89 Other specified abnormal findings of blood chemistry; I10 Essential (primary) hypertension
CPT/HCPCS: 80048

== ENCOUNTER 2025-05-12 10:15 | Outpatient (CLI) | payer MEDICARE, BC, SELFPAY ==
[2025-05-12 13:40] LABS: Hematocrit 39.0 % (37.0-47.0); Hemoglobin 12.3 g/dL (12.2-16.2); Immature Granulocytes % 0.4 %; Mean Corpuscular HGB Conc 31.5 g/dL (31.8-35.4); Mean Corpuscular Hemoglobin 29.0 pg (27.0-31.2); Mean Corpuscular Volume 92.0 fl (81-99); Nucleated Red Blood Cells % 0 %; Platelet Count 217 K/mm3 (142-424); Red Blood Count 4.24 M/mm3 (4.20-5.40); Red Cell Distribution Width-SD 50.6 fL; White Blood Count 5.2 K/mm3 (4.8-10.8)
[2025-05-12 14:06] LABS: Alanine Aminotransferase 18 U/L (12-78); Albumin Level 5.0 g/dl (3.5-5.0); Albumin/Globulin Ratio 2.0 (1.1-1.8); Alkaline Phosphatase 95 U/L (38-126); Anion Gap 18.1 mEq/L (5-15); Aspartate Amino Transferase 35 U/L (14-36); Bilirubin,Total 0.7 mg/dl (0.2-1.3); Blood Urea Nitrogen 25 mg/dl (7-17); Calcium 9.9 mg/dl (8.4-10.2); Carbon Dioxide 24 mmol/L (22.0-30.0); Chloride 102 mmol/L (98-107); Cholesterol 164 mg/dl (140-200); Creatinine,Serum 0.90 mg/dl (0.52-1.04); Estimated Glomerular Filt Rate 61 ml/min (>60); GFR (African American) 73 ML/MIN (>60); Globulin 2.5 g/dL (1.3-3.2); Glucose 80 mg/dl (74-100); HDL Cholesterol 46 mg/dl (40-60); Potassium 5.1 mmoL/L (3.5-5.1); Sodium 139 mmol/L (136-145); Total Protein,Serum 7.5 g/dl (6.3-8.2); Triglycerides 252 mg/dl (30-150)
== END 2025-05-12 23:59 ==
LOC: LAB.DROPOF 05-14 10:16
PROVIDERS: PCP Internal Medicine; Visit Provider Internal Medicine
DX: I10 Essential (primary) hypertension (principal); I25.10 Atherosclerotic heart disease of native coronary artery without angina pectoris; M17.11 Unilateral primary osteoarthritis, right knee; E66.9 Obesity, unspecified; E78.49 Other hyperlipidemia
CPT/HCPCS: 80053; 80061; 85025